=== PATIENT | male | born 1990 ===

== ENCOUNTER 2024-04-28 14:21 | Emergency (ER) | payer SELFPAY ==
[2024-04-28] MEDS: Sodium Chloride 0.9% 1,000 ML IV ONE (14:34)
[2024-04-28 14:45] LABS: BASOPHILS ABSOLUTE AUTO 0.06 K/uL (0.00-0.20); BASOPHILS PERCENT AUTO 0.5 % (0.0-1.0); EOSINOPHILS ABSOLUTE AUTO 0.07 K/uL (0.00-0.45); EOSINOPHILS PERCENT AUTO 0.6 % (0.0-6.0); HEMOGLOBIN 17.1 g/dL (14.0-18.0); IMMATURE GRAN ABSOLUTE AUTO 0.07 K/uL (0.00-0.05); IMMATURE GRAN PERCENT AUTO 0.6 % (0.0-0.4); LYMPHOCYTES ABSOLUTE AUTO 2.86 K/uL (1.00-4.80); LYMPHOCYTES PERCENT AUTO 24.4 % (24.0-44.0); MEAN CORPUSCULAR HEMOGLOBIN 29.5 pg (28.0-32.0); MEAN CORPUSCULAR HGB CONC 34.9 g/dL (32.0-36.0); MEAN CORPUSCULAR VOLUME 84.5 fL (83.0-99.0); MEAN PLATELET VOLUME 10.9 fL (9.4-12.4); MONOCYTES ABSOLUTE AUTO 0.91 K/uL (0.00-0.80); MONOCYTES PERCENT AUTO 7.8 % (0.0-8.0); NEUTROPHILS ABSOLUTE AUTO 7.76 K/uL (1.80-7.70); NEUTROPHILS PERCENT AUTO 66.1 % (41.0-71.0); PLATELET COUNT,PLT 187 K/uL (150-400); WHITE BLOOD CELL COUNT,WBC 11.73 K/uL (3.9-11.3)
[2024-04-28 15:08] LABS: A/G RATIO 1.2 (0.9-1.6); ALBUMIN 4.3 g/dL (3.4-5.0); BILIRUBIN TOTAL 0.3 mg/dL (0.2-1.0); CALCIUM 9.1 mg/dL (8.5-10.1); CARBON DIOXIDE,CO2 26.9 mmol/L (21.0-32.0); CREATININE 1.1 mg/dL (0.8-1.3); EST CRCL DRUG DOSING (CG) 103.86 mL/min
[2024-04-28 15:11] LABS: BICARBONATE,ARTERIAL 22 mEq/L (22-26); PCO2 ARTERIAL 35 mmHG (35-45); PO2 ARTERIAL 88 mmHG (80-105)
[2024-04-28 15:11] LABS: LACTIC ACID 1.8 mmol/L (0.4-2.0)
== END 2024-04-28 15:54 | disposition home or self-care (01) ==
LOC: MW.ED 14:21
DX: T59.6X1A Toxic effect of hydrogen sulfide, accidental (unintentional), initial encounter (principal); F17.210 Nicotine dependence, cigarettes, uncomplicated; Z75.8 Other problems related to medical facilities and other health care
CPT/HCPCS: 36415; 36600; 71045; 80053; 82803; 83605; 85025; 93005; 96360; 99285; J7030